=== PATIENT | female | born 1990 | race African-American/Black ===

== ENCOUNTER 2023-01-03 15:32 | Emergency (ER) | payer OTHER ==
[2023-01-03 15:54] VITALS: BP 139/95; PULSE 80; RESP 18; TEMP 98.3; BMI 31.4
[2023-01-03] MEDS ORDERED: ALBUTEROL SO4 2.5/IPRATROPIUM 0.5 INH SOL 3 ML VIAL.NEB. NEB ONE ×2 (16:11→16:40)
== END 2023-01-03 17:18 | disposition home or self-care (01) ==
LOC: FER 15:32
PROC: 3E0F7GC Introduction of Other Therapeutic Substance into Respiratory Tract, Via Natural or Artificial Opening (ICD-10-PCS; principal; 2023-01-03)
DX: R05.3 Chronic cough (principal); M25.60 Stiffness of unspecified joint, not elsewhere classified; R06.02 Shortness of breath; J34.89 Other specified disorders of nose and nasal sinuses; R09.3 Abnormal sputum; J40 Bronchitis, not specified as acute or chronic
CPT/HCPCS: 71046-TC-FY; 99284-25